=== PATIENT | female | born 1975 | race Caucasian/White ===

== ENCOUNTER 2020-12-18 08:23 | Day surgery (SDC) | payer BC ==
[~2020-12-18 08:23] MED LIST: Lactated Ringers 1,000 ML IV SCH; Lidocaine 2% 5 ML SDV ONE; Midazolam 1 MG/ML 2 ML SDV ONE; Ondansetron 4 MG/2 ML SDV ONE; Sodium Chloride 0.9% 10 ML SDV IV PRN; Sodium Chloride 0.9% 10 ML Syringe FLUSH PRN; Sodium Chloride 0.9% 2.5 ML Syringe FLUSH PRN; fentaNYL 100 MCG/2 ML SDV ONE; propofoL 100 ML ONE
--- NOTE | 2020-12-18 09:00 | PCM.PREANE ---
Preanesthetic Assessment - Anesthesia/Transfusion/Family Hx Anesthesia History: Prior Anesthesia Reaction Type of Anesthesia Reaction: Excessive Nausea/Vomiting Transfusion History: No Prior Transfusion(s) - Review of Systems General: No Symptoms Pulmonary: No Symptoms Cardiovascular: No Symptoms Gastrointestinal: No Symptoms Neurological: No Symptoms Other: Reports: None - Physical Assessment NPO Status Date: 12/18/20 NPO Status Time: 00:00 Vital Signs: Last Vital Signs Temp 97.2 F 12/18/20 08:42 Pulse 53 L 12/18/20 08:42 Resp 15 12/18/20 08:42 BP 119/64 12/18/20 08:42 Pulse Ox 97 12/18/20 08:42 Height: 5 ft 5 in Weight: 223 lb ASA Class: 3 Mental Status: Alert & Oriented x3 Airway Class: Mallampati = 2 Dentition: Reports: Normal Dentition Thyro-Mental Finger Breadths: 3 Mouth Opening Finger Breadths: 3 ROM/Head Extension: Full Lungs: Clear to Auscultation, Normal Respiratory Effort Cardiovascular: Regular Rate, Regular Rhythm - Allergies Allergies/Adverse Reactions: Allergies Allergy/AdvReac Type Severity Reaction Status Date / Time Penicillins Allergy Intermediate Nausea and Verified 12/12/20 11:35 Vomiting hydromorphone HCl Allergy Unknown Hives Verified 12/12/20 11:35 [From Dilaudid] - Blood Blood Available: No - Acknowledgements Anesthesia Type Planned: General Anesthesia Pt an Appropriate Candidate for the Planned Anesthesia: Yes Alternatives and Risks of Anesthesia Discussed w Pt/Guardian: Yes Pt/Guardian Understands and Agrees with Anesthesia Plan: Yes PreAnesthesia Questionnaire HEENT History: Reports: Hard of Hearing, Other (See Below) Other HEENT History: wears glasses/contacts Cardiovascular History: Reports: Hypertension Respiratory History: Reports: None Gastrointestinal History: Reports: GERD, Helicobacter Pylori Genitourinary History: Reports: None 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 Musculoskeletal History: Reports: None Neurological History: Reports: Other (See Below) Other Neuro History: hx of motion sickness Psychiatric History: Reports: Anxiety Endocrine/Metabolic History: Reports: Obesity/BMI 30+ Hematologic History: Reports: None Immunologic History: Reports: None Oncologic (Cancer) History: Reports: None Dermatologic History: Reports: None - Past Surgical History Head Surgeries/Procedures: Reports: None HEENT Surgical History: Reports: Oral Surgery Other HEENT Surgeries/Procedures: wisdom teeth removed Cardiovascular Surgical History: Reports: None Respiratory Surgical History: Reports: None GI Surgical History: Reports: Cholecystectomy, Colonoscopy, EGD Female Surgical History: Reports: Hysterectomy, Salpingo-Oophorectomy, Other (See Below) Other Female Surgeries/Procedures: hx of laser of ovaries Endocrine Surgical History: Reports: None Neurological Surgical History: Reports: None Musculoskeletal Surgical History: Reports: None Other Musculoskeletal Surgeries/Procedures:: ankle surgery Oncologic Surgical History: Reports: None Dermatological Surgical History: Reports: None - SUBSTANCE USE Tobacco Use Status *Q: Never Tobacco User Recreational Drug Use History: No - HOME MEDS Home Medications: Home Meds Biotin 1 mg PO DAILY 12/12/20 [History] Cholecalciferol (Vitamin D3) [Vitamin D3] 1,000 unit PO DAILY 12/12/20 [History] Estrogens, Conjugated [Premarin] 0.3 mg PO DAILY 12/12/20 [History] Losartan Potassium 100 mg PO QAM 12/12/20 [History] Ondansetron [Zofran Odt] 8 mg SL TID PRN 12/12/20 [History] Pantoprazole Sodium [Protonix] 40 mg PO DAILY PRN 12/12/20 [History] Potassium Chloride 10 meq PO DAILY 12/12/20 [History] hydroCHLOROthiazide [Hydrochlorothiazide] 25 mg PO DAILY 12/12/20 [History] - CURRENT (IN HOUSE) MEDS Current Meds: Current Medications Lactated Ringer's (Ringers, Lactated) 1,000 mls @ 125 mls/hr IV ASDIRECTED EBONY Sodium Chloride (Sodium Chloride 0.9% 10 Ml Syringe) 10 ml FLUSH ASDIRECTED PRN PRN Reason: Keep Vein Open Sodium Chloride (Sodium Chloride 0.9% 2.5 Ml Syringe) 2.5 ml FLUSH ASDIRECTED PRN PRN Reason: Keep Vein Open Sodium Chloride (Sodium Chloride 0.9% 10 Ml Syringe) 10 ml FLUSH ASDIRECTED PRN PRN Reason: Keep Vein Open Sodium Chloride (Sodium Chloride 0.9% 2.5 Ml Syringe) 2.5 ml FLUSH ASDIRECTED PRN PRN Reason: Keep Vein Open Sodium Chloride (Sodium Chloride 0.9% 10 Ml Sdv) 10 ml IV ASDIRECTED PRN PRN Reason: IV Use Discontinued Medications Fentanyl (Fentanyl 100 Mcg/2 Ml Sdv) Confirm Administered Dose 100 mcg .ROUTE .STK-MED ONE Stop: 12/18/20 07:06 Propofol (Diprivan 100 Ml) Confirm Administered Dose 100 mls @ as directed .ROUTE .STK-MED ONE Stop: 12/18/20 07:12 Lidocaine (Lidocaine 2% 5 Ml Sdv) Confirm Administered Dose 5 ml .ROUTE .STK-MED ONE Stop: 12/18/20 07:06 Midazolam HCl (Midazolam 1 Mg/Ml 2 Ml Sdv) Confirm Administered Dose 2 mg .ROUTE .STK-MED ONE Stop: 12/18/20 07:12 Ondansetron HCl (Ondansetron 4 Mg/2 Ml Sdv) Confirm Administered Dose 4 mg .ROUTE .STK-MED ONE Stop: 12/18/20 07:06
--- NOTE | 2020-12-18 10:14 | PCM.POSTAN ---
POST ANESTHESIA ASSESSMENT - MENTAL STATUS Mental Status: Oriented, Somnolent - VITAL SIGNS Vital Signs: Last Vital Signs Temp 97.2 F 12/18/20 08:42 Pulse 53 L 12/18/20 08:42 Resp 15 12/18/20 08:42 BP 119/64 12/18/20 08:42 Pulse Ox 97 12/18/20 08:42 - RESPIRATORY Respiratory Status: Respiratory Rate WNL, Airway Patent, O2 Saturation Stable - CARDIOVASCULAR CV Status: Pulse Rate WNL, Blood Pressure Stable - GASTROINTESTINAL GI Status: No Symptoms - POST OP HYDRATION Hydration Status: Adequate & Stable
--- NOTE | 2020-12-18 10:15 | PCM48HPAN ---
Post Anesthesia Note - EVALUATION WITHIN 48HRS OF ANESTHETIC Vital Signs in Normal Range: Yes Patient Participated in Evaluation: Yes Respiratory Function Stable: Yes Airway Patent: Yes Cardiovascular Function Stable: Yes Hydration Status Stable: Yes Pain Control Satisfactory: Yes Nausea and Vomiting Control Satisfactory: Yes Mental Status Recovered: Yes Vital Signs: Last Vital Signs Temp 97.2 F 12/18/20 08:42 Pulse 53 L 12/18/20 08:42 Resp 15 12/18/20 08:42 BP 119/64 12/18/20 08:42 Pulse Ox 97 12/18/20 08:42
[2020-12-18 10:39] VITALS: BP 111/54; PULSE 59
--- NOTE | 2020-12-18 11:11 | PCM.OPNOTE ---
- General Post-Op/Procedure Note Date of Surgery/Procedure: 12/18/20 Operative Procedure(s): Diagnostic EGD and colonoscopy Findings: GERD, sigmoid colon polyp, transverse colon polyp, diverticulosis Pre Op Diagnosis: Chronic nausea and vomiting, change in bowel habits Post-Op Diagnosis: GERD, sigmoid colon polyp, transverse colon polyp, diverticulosis Anesthesia Technique: [facility] [place] Primary Surgeon: Angela Cao Condition: Stable Free Text/Narrative:: Intake & Output 12/17/20 12/18/20 12/18/20 22:59 06:59 14:59 Intake Total 1075 Balance 1075
--- NOTE | 2020-12-18 13:53 | OR ---
SURGEON: ANGELA CAO MD DATE OF PROCEDURE: 12/18/2020 PREOPERATIVE DIAGNOSIS: Chronic nausea and vomiting, change in bowel habits. POSTOPERATIVE DIAGNOSES: 1. Gastroesophageal reflux disease. 2. Sigmoid colon polyp. 3. Transverse colon polyp. 4. Diverticulosis. PROCEDURES PERFORMED: Diagnostic colonoscopy and esophagogastroduodenoscopy. PRIMARY SURGEON: Angela Cao MD ANESTHESIA: MAC. INSTRUMENT USED: Olympus endoscope and colonoscope. EXTENT OF EXAM: To the 2nd portion of the duodenum, to the cecum. PREPARATION: Good. LIMITATIONS: None. INDICATIONS FOR EXAMINATION: The patient is a 45-year-old female who presents with chronic nausea and vomiting. She has also noticed an acute change in her bowel habits. The patient and I discussed the need for diagnostic EGD and colonoscopy. I explained the procedure, expected perioperative course, and the risks. The patient verbalized understanding and wishes to proceed. PROCEDURE IN DETAIL: The patient was brought into the endoscopy suite and placed in a left lateral decubitus position. A time-out was completed verifying the patient's name, age, date of , allergies, and procedure to be performed. Monitored anesthesia care was induced and a bite block was placed in the patient's mouth. Continuous oxygen was provided via nasal cannula throughout the procedure. After adequate sedation was achieved, a well-lubricated endoscope was placed in the patient's mouth and advanced under direct visualization to the 2nd portion of duodenum. This appeared normal and a photograph was taken. The scope was then straightened out and fully withdrawn while examining the color, texture, anatomy, and integrity of mucosa of the upper GI tract. The duodenal mucosa all appeared normal. A biopsy was taken of the duodenal bulb. This was done using a cold biopsy forceps and the specimen was labeled duodenum. The scope was then brought into the stomach and a photograph was taken of the pylorus and GE junction. On retroflexed view of the GE junction, the lower esophageal sphincter appeared very patulous and I could see up into the esophagus very well from the stomach. A photograph of this was taken. There was no evidence of a hiatal hernia. The gastric mucosa appeared normal. Biopsies were taken of the antrum, body, and fundus, and sent for histologic review and H pylori testing. The scope was then brought to the distal esophagus and a photograph taken of the Z-line. The Z-line appeared grossly normal. The distal esophageal mucosa appeared free of esophagitis or any gross ulceration. A biopsy was taken just above the Z-line and sent to Pathology, labeled as esophageal biopsy. The remainder of the esophagus appeared normal. The scope was removed and this portion of procedure terminated. A digital rectal exam was performed. This exam was within normal limits. A well-lubricated colonoscope was inserted in the rectum and advanced under direct visualization to the level of the cecum. The cecum was identified by both visual and anatomic landmarks. A photograph was taken of the cecal cap; however, I was unable to retroflex the scope within the cecum due to looping of the scope more proximally. The scope was fully withdrawn while examining the color, texture, anatomy, and integrity of the mucosa from the cecum to the anal canal. The terminal ileum appeared normal. Random biopsies were taken throughout the colon. A biopsy was taken in the cecum, ascending colon, transverse colon, descending colon, sigmoid colon, and rectum, and sent to Pathology for histologic review. The patient had 2 small sessile polyps, 1 was in the transverse colon and 1 in the sigmoid colon. Both of these were removed in piecemeal fashion using a cold biopsy forceps. She was also noted to have diverticulosis within the sigmoid colon. The scope was then brought into the rectum and retroflexed to allow visualization of the anal canal opening. This appeared normal and a photograph was taken. The scope was then straightened out and fully withdrawn. The cecum to anus time was 10 minutes. The patient tolerated the procedure well and was transferred to the PACU in stable condition. ENDOSCOPIC DIAGNOSES: 1. Gastroesophageal reflux disease. 2. Sigmoid colon polyp. 3. Transverse colon polyp. 4. Diverticulosis. RECOMMENDATIONS: Follow up in clinic in 2 weeks. JOELLEN MCGHEE /[id number]
== END 2020-12-18 10:50 | disposition home or self-care (01) ==
LOC: MW.SDS 08:23
PROVIDERS: ATTEND Surgery
DX: K63.5 Polyp of colon (principal); K22.8 Other specified diseases of esophagus; K31.89 Other diseases of stomach and duodenum; K63.89 Other specified diseases of intestine; K57.30 Diverticulosis of large intestine without perforation or abscess without bleeding; K21.9 Gastro-esophageal reflux disease without esophagitis; I10 Essential (primary) hypertension; E66.9 Obesity, unspecified; G47.33 Obstructive sleep apnea (adult) (pediatric); Z88.0 Allergy status to penicillin; Z88.8 Allergy status to other drugs, medicaments and biological substances; Z79.899 Other long term (current) drug therapy; Z68.37 Body mass index [BMI] 37.0-37.9, adult
CPT/HCPCS: 43239; 45380; 88305; 88342; J2250; J2405; J2704; J3010; J7120; 00813

== ENCOUNTER 2021-01-16 16:47 | Emergency (ER) | payer OTHER, BC ==
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
--- NOTE | 2021-01-16 17:50 | CT ---
Indication: Neck pain. Trauma. Technique: Noncontrast axial CT of the cervical spine with coronal and sagittal reformats are provided. No comparisons. Findings: The overall stature, alignment of the cervical spine is within normal limits. There is notable sclerosis of the left C3 vertebral body extending into the left pedicle and transverse process. The characteristics of the sclerosis appear to represent a benign/congenital process. No convincing evidence of suspicious bony fragments narrowing the central canal or neural foramina. Prevertebral soft tissues, cervical airway, dens and lateral masses are within normal limits. Mild scattered degenerative changes of the cervical spine. Impression: 1. No convincing radiographic evidence of acute osseous injury. 2. Mild scattered degenerative changes of the cervical spine. 3. Sclerosis of the left C3 vertebral body demonstrate characteristics suggestive of a benign or congenital process. Dictated by Leandro Baumann MD @ 01/16/2021 5:47:45 PM Please note that all CT scans at this facility use dose modulation, iterative reconstruction, and/or weight-based dosing when appropriate to reduce radiation dose to as low as reasonably achievable. Dictated by: Leandro Baumann MD @ 01/16/2021 17:48:02 (Electronically Signed)
--- NOTE | 2021-01-16 17:50 | CT ---
INDICATION: Trauma. Headaches. TECHNIQUE: Non-contrast CT of the head is submitted. No comparisons. FINDINGS: The ventricles, sulci and gyri are of normal size, shape and contour. Midline structures are centrally located. No convincing evidence of intra- or extra-axial fluid collections. IMPRESSION: 1. No radiographic evidence of acute intracranial abnormalities. Dictated by Leandro Baumann MD @ 01/16/2021 5:49:18 PM Please note that all CT scans at this facility use dose modulation, iterative reconstruction, and/or weight-based dosing when appropriate to reduce radiation dose to as low as reasonably achievable. Dictated by: Leandro Baumann MD @ 01/16/2021 17:49:35 (Electronically Signed)
[2021-01-16 18:42] VITALS: BP 130/79; PULSE 62
== END 2021-01-16 18:03 | disposition home or self-care (01) ==
LOC: MW.ED 16:47
DX: S16.1XXA Strain of muscle, fascia and tendon at neck level, initial encounter (principal); I10 Essential (primary) hypertension; K21.9 Gastro-esophageal reflux disease without esophagitis; E66.9 Obesity, unspecified; Z68.34 Body mass index [BMI] 34.0-34.9, adult; Z88.0 Allergy status to penicillin; Z88.5 Allergy status to narcotic agent; Z79.899 Other long term (current) drug therapy; V89.2XXA Person injured in unspecified motor-vehicle accident, traffic, initial encounter; V43.52XA Car driver injured in collision with other type car in traffic accident, initial encounter
CPT/HCPCS: 70450; 70450-26; 72125; 72125-26; 99284-25